=== PATIENT | female | born 1995 | race African-American/Black ===

== ENCOUNTER 2018-06-04 22:09 | Emergency (ER) | payer OTHER ==
[~2018-06-04] VITALS: Ht 160 cm; Wt 113.4 kg
[2018-06-04] MEDS ORDERED: DOCU100C36 PO (22:27)
[2018-06-04] MEDS ORDERED: NAPR500T6 PO (22:27)
[2018-06-04] MEDS ORDERED: ZOLP10TA6 PO (22:27)
[2018-06-04] MEDS ORDERED: PROC5TAB25 PO (22:27)
[2018-06-04] MEDS ORDERED: PHEN100C12 PO (22:27)
[2018-06-04] MEDS ORDERED: LEVE750T56 PO (22:27)
[2018-06-04] MEDS ORDERED: QUET300T2 PO (22:27)
[2018-06-04] MEDS ORDERED: IPRA12.9 IH (22:27)
[2018-06-04] MEDS ORDERED: IBUP-1955 PO (22:27)
[2018-06-04] MEDS ORDERED: DIPH25CA83 PO (22:27)
[2018-06-04] MEDS ORDERED: LEVETIRACETAM IV 1,000 MG in IV DEXTROSE 5% 100 ML IV SCH (23:15)
--- NOTE | 2018-06-04 23:32 | NUR ---
Patient is refusing blood draw, and IV medication. ERMD aware
[2018-06-04] MEDS ORDERED: LEVETIRACETAM 250 MG TABLET ONE (23:37)
[2018-06-04] MEDS ORDERED: PHENYTOIN SODIUM EXTENDED 100 MG CAPSULE.SA PO ONE ×2 (23:45→23:49)
[2018-06-04] MEDS ORDERED: LEVETIRACETAM 250 MG TABLET PO ONE (23:45)
--- NOTE | 2018-06-04 23:51 | NUR ---
Patient does not wish to proceed with medical care recommended by Dr. Michael. Patient given information related to possible complications, up to and including , which could occur as a result of leaving the hospital at this time. Patient verbalizes understanding of risks involved due to leaving against medical advice. Patient has signed AMA form. Patient ambulated with stable gait.
== END 2018-06-05 00:08 | disposition left against medical advice (07) ==
LOC: ER 22:09
DX: G40.909 Epilepsy, unspecified, not intractable, without status epilepticus (principal); J45.909 Unspecified asthma, uncomplicated; Z79.1 Long term (current) use of non-steroidal anti-inflammatories (NSAID); Z79.899 Other long term (current) drug therapy
CPT/HCPCS: 99283; J7060; A4663